=== PATIENT | male | born 1995 | race Caucasian/White ===

== ENCOUNTER 2016-08-01 18:21 | Emergency (ER) | payer OTHER ==
[~2016-08-01] VITALS: Ht 177.8 cm; Wt 62.3 kg
[~2016-08-01 18:21] MED LIST: CIPR-231 PO; GUAI5LIQ PO; IBUP200C PO; METR500T PO
[2016-08-01 19:16] VITALS: BP 133/84; PULSE 93; RESP 16; O2SAT 98
--- NOTE | 2016-08-01 20:08 | DRSVH ---
PROCEDURE: X-RAY RIGHT WRIST COMPLETE, MINIMUM THREE VIEWS ([id number]) INDICATIONS: right wrist pain after fall TECHNIQUE: 4 views of the wrist were acquired. COMPARISON: [facility], CR, XR WRIST 3VW RT, 04/07/2015, 13:24. FINDINGS: Bones: No fractures or dislocations. No suspicious bony lesions. Scaphoid view: No visualized fracture. Soft tissues: No suspicious soft tissue calcifications. IMPRESSION: No visualized acute fracture or dislocation. However, if clinical concern and/or pain pe rsist, short interval imaging followup in 7-10 days is recommended, as occult injury cannot be defini tively excluded. Dictated by: Jennie Leon M.D. on 08/01/2016 at 20:05 Approved by: Jennie Leon M.D. on 08/01/2016 at 20:07
--- NOTE | 2016-08-01 20:09 | DRSVH ---
PROCEDURE: X-RAY SACRUM AND COCCYX, MINIMUM THREE VIEWS ([id number]) INDICATIONS: tailbone pain and fall TECHNIQUE: 3 views of the sacrum and coccyx acquired. COMPARISON: None. FINDINGS: Bones: No fractures or dislocations. No suspicious bony lesions. Soft tissues: Visualized bowel gas pattern is normal. No suspicious soft tissue densities. IMPRESSION: No visualized acute fracture or dislocation. However, if clinical concern and/or pain pe rsist, short interval imaging followup in 7-10 days is recommended, as occult injury cannot be defini tively excluded. Dictated by: Jennie Leon M.D. on 08/01/2016 at 20:07 Approved by: Jennie Leon M.D. on 08/01/2016 at 20:07
--- NOTE | 2016-08-01 21:51 | ED.REPORT ---
HPI-Trauma Minor / Fall Date of Service Aug 01, 2016 ED Provider: Dr. Case 20 year old male with a history of asthma who presents to the ER with sacral pain and R wrist after falling today. Pt works at the [employer] and states that he jumped up to prevent the ball from hitting a child in the head when he landed straight on his R wrist and sacrum. He reports intermittent numbness to the R 4th and 5th fingers. He is able to move wrist without much pain. Pain to sacrum is exacerbated with sitting. Pt denies head trauma and neck pain. PCP Maddison Silva Nursing Notes Stated Complaint: FELL AT WORK- HURT WRIST AND TAILBONE Chief Complaint: Extremity Trauma Nursing Notes Reviewed: Yes Allergies: Coded Allergies: No Known Allergies (Unverified , 08/01/16) Scheduled Ciprofloxacin (Cipro) 500 Mg Tablet 500 MG PO BID Metronidazole (Flagyl) 500 Mg Tablet 500 MG PO Q8H Scheduled PRN Guaifenesin/Codeine Phosphate (Guaifenesin-Codeine Syrup) 5 Ml Syrup 5 ML PO Q4H PRN PRN For Cough Ibuprofen (Ibuprofen) 200 Mg Capsule 1,000 MG PO DAILY PRN PRN For Pain Ibuprofen (Ibuprofen) 600 Mg Tablet 600 MG PO QID PRN PRN For Pain General Time Seen by MD: 21:50 Chief Complaint Fall Hx Obtained From: Patient Arrived By: Walk-in Onset Occurred: Just prior to arrival Symptom Duration: Since onset Caused by: Fall on ground Location: Back (sacrum) Wrist right Quality: Painful Severity: Current: Mild Associated with: Denies: Loss of consciousness, Neck pain Past Medical History Past Medical History Asthma Past Surgical History none reported Family History noncontributory Smoking History Current Some Day Smoker Social History Alcohol Use: Denies alcohol use Drug Use: Denies drug use Ambulatory Status Independent Review of Systems Musculoskeletal: Reports: Back pain (sacrum), Joint pain Neurologic: Denies: Change LOC, Headache Complete sys rev & neg: except as marked. Physical Exam Initial Vital Signs Vital Signs (First) Date Time Temp Pulse Resp B/P Pulse Ox O2 Delivery O2 Flow Rate FiO2 08/01/16 19:16 36.6 93 16 133/84 98 Room Air Initial VS: Reviewed Head / Eyes: Atraumatic, Normocephalic, PERRL ENT: Conjunctiva normal, No scleral icterus Respiratory: No respiratory distress Skin: Warm, Dry, No cyanosis Neurologic: Alert, Oriented, Nonfocal Psychiatric: Mood/affect normal, Behavior normal, Normal thought content General/Constitutional: Awake, Alert Neck: Atraumatic, Full range of motion Back: Full range of motion No bruising or abrasions to area. Tenderness to coccyx. Wrist / Hand: Full range of motion, Neurologic intact (distally), Vascular intact (distally) no bony tenderness Interpretation & Diagnostics X-Ray Interpretation Xray Interpretation: IMPRESSION: No visualized acute fracture or dislocation. However, if clinical concern and/or pain persist, short interval imaging followup in 7-10 days is recommended, as occult injury cannot be definitively excluded. Dictated by: Jennie Leon M.D. on 08/01/2016 at 20:05 X-Ray Ordered: Wrist right Interpretation / Wet Read by: Interpret - Radiologist Xray Interpretation: IMPRESSION: No visualized acute fracture or dislocation. However, if clinical concern and/or pain persist, short interval imaging followup in 7-10 days is recommended, as occult injury cannot be definitively excluded. Dictated by: Jennie Leon M.D. on 08/01/2016 at 20:07 Study Performed: Sacrum and coccyx Interpretation / Wet Read by: Interpret - Radiologist Re-Eval/Medical Decision Re-Evaluation/Progress : Time of Eval: 22:20 Re-Evaluation/Progress Note: Updated of imaging. Discussed plan for discharge and follow up. All questions addressed. Counseled Regarding: Diagnosis, Need for follow-up, When/why to return to ED Discharge & Departure Impression: Primary Impression: Right wrist sprain Encounter type: initial encounter Qualified Code: S63.501A - Unspecified sprain of right wrist, initial encounter Additional Impression: Contusion of sacral region Encounter type: initial encounter Qualified Code: S30.0XXA - Contusion of lower back and pelvis, initial encounter Disposition: Home Discharge Condition All VS Reviewed: Yes Condition: Improved Patient Instructions: Contusions in Adults (ED) Additional Instructions: Emergency Department evaluation included interviewed examination and x-rays of wrist and pelvis. No fractures identified. We advise use of ibuprofen 60 mg every 6 hours as needed for pain. Ice to sore areas. Do not lift more than 20 # or perform repetitive movements with R hand. Follow up with primary care if pain is not resolved in 4-5 days. Referrals: Geeta Silva PA-C (PCP) Scribe Attestation Portions of this note were transcribed by Mariana Keen. I, (Dr. Case) personally performed the history, physical exam and medical decision-making; I reviewed and confirmed the accuracy of the information in the transcribed note. Signed by: Mariana Keen. Marialuisaibe, 08/01/2016, [id number] copies to: Geeta Silva PA-C, Donald L MD Aug 01, 2016 21:51 Mariana Keen Aug 01, 2016 22:18
[2016-08-01] MEDS ORDERED: IBUP-1827 PO (22:24)
[2016-08-01 22:33] VITALS: BP 133/79; PULSE 88; RESP 18; O2SAT 99
== END 2016-08-01 22:35 | disposition home or self-care (01) ==
LOC: SED 20:07
DX: S63.501A Unspecified sprain of right wrist, initial encounter (principal); S30.0XXA Contusion of lower back and pelvis, initial encounter; W18.39XA Other fall on same level, initial encounter; Y93.39 Activity, other involving climbing, rappelling and jumping off; Y92.69 Other specified industrial and construction area as the place of occurrence of the external cause; Y99.0 Civilian activity done for income or pay; R20.0 Anesthesia of skin; J45.909 Unspecified asthma, uncomplicated; F17.200 Nicotine dependence, unspecified, uncomplicated

== ENCOUNTER 2016-09-17 01:08 | Emergency (ER) | payer OTHER ==
[~2016-09-17] VITALS: Ht 175.3 cm; Wt 59.1 kg
[~2016-09-17 01:08] MED LIST changes: +IBUP-1827 PO
[2016-09-17 01:11] VITALS: BP 126/85; PULSE 78; RESP 18; O2SAT 98
[2016-09-17] MEDS ORDERED: Albuterol 2.5 mg/3 mL Inhalation Solution NEB ONE (01:51)
--- NOTE | 2016-09-17 02:16 | ED.REPORT ---
HPI-NVD Date of Service September 17, 2016 ED Provider: Garrick Wheeler MD Patient is a 20 year old male who presents to the ED complaining of vomiting onset a few weeks ago. He reports that a 2 mo ago he started antibiotics and after his treatment he could no longer keep food or water down. He visited his PCP who told him to take probiotics and he has been taking ondansetron. Associated symptoms include abdominal pain and loss of 10 lbs since onset. He denies diarrhea, dysuria, abnormally colored stools, fever, or any other symptoms. Nursing Notes Stated Complaint: VOMITING Chief Complaint: Male Abdominal Pain Nursing Notes Reviewed: Yes Allergies: Coded Allergies: No Known Allergies (Unverified , 08/01/16) Scheduled Ciprofloxacin (Cipro) 500 Mg Tablet 500 MG PO BID Metronidazole (Flagyl) 500 Mg Tablet 500 MG PO Q8H Ondansetron ODT (Ondansetron ODT) 8 Mg Tab.rapdis 8 MG PO TID Scheduled PRN Guaifenesin/Codeine Phosphate (Guaifenesin-Codeine Syrup) 5 Ml Syrup 5 ML PO Q4H PRN PRN For Cough Ibuprofen (Ibuprofen) 200 Mg Capsule 1,000 MG PO DAILY PRN PRN For Pain Ibuprofen (Ibuprofen) 600 Mg Tablet 600 MG PO QID PRN PRN For Pain General Time Seen by MD: 02:07 Chief Complaint Vomiting Hx Obtained From: Patient Arrived By: Walk-in Onset Occurred: More than a week ago... (4 weeks) Symptom Duration: Since onset Recent Healthcare: Recent doctor visit Past Medical History Past Medical History Asthma Migraines Past Surgical History none reported Family History noncontributory Smoking History Former Smoker Social History Alcohol Use: "Social" Drug Use: Denies drug use Ambulatory Status Independent Review of Systems Review of Systems Note: -abnormally colored stools Constitutional: Reports: Recent wt loss, Denies: Fever GI: Reports: Abdominal pain, Nausea, Vomiting, Denies: Diarrhea Complete sys rev & neg: except as marked. Male: Denies Dysuria Physical Exam Initial Vital Signs Vital Signs (First) Date Time Temp Pulse Resp B/P Pulse Ox O2 Delivery O2 Flow Rate FiO2 09/17/16 01:11 36.2 78 18 126/85 98 Room Air Initial VS: Reviewed, Vital signs normal Head / Eyes: Atraumatic, Normocephalic Neck: Full range of motion Respiratory: Breath sounds normal, Clear to auscultation, No respiratory distress Cardiovascular: Regular rate & rhythm, Heart sounds normal Skin: Warm, Dry Neurologic: Alert, Oriented, Nonfocal Psychiatric: Mood/affect normal, Behavior normal, Normal thought content General/Constitutional: Awake, Alert, Well appearing, Well developed Abdomen: Soft Mild L sided tenderness Interpretation & Diagnostics Lab Results Interpretation Result Diagram: 09/17/16 0246 09/17/16 0246 Test 09/17/16 02:46 White Blood Count 9.8th/mm3 (3.8-10.1) Red Blood Count 5.51mil/mm3 (4.40-5.80) Hemoglobin 16.4g/dL (13.8-17.2) Hematocrit 45.5% (41.0-50.0) Mean Corpuscular Volume 82.6fL (81-100) Mean Corpuscular Hemoglobin 29.8pg (27.0-35.0) Mean Corpuscular Hemoglobin Concent 36.0% (32.0-37.0) Red Cell Distribution Width 12.3% (12.3-15.4) Platelet Count 286bil/L (150-400) Neutrophils (%) (Auto) 66.8% (40-74) Lymphocytes (%) (Auto) 25.4% (14-46) Monocytes (%) (Auto) 5.7% (4-12) Eosinophils (%) (Auto) 1.4% (0-5) Basophils (%) (Auto) 0.3% (0-3) Sodium Level 140mEq/L (134-144) Potassium Level 3.7mEq/L (3.5-5.2) Chloride Level 100mEq/L (97-108) Carbon Dioxide Level 25mmol/L (18-29) Blood Urea Nitrogen 19mg/dL (6-20) Creatinine 0.92mg/dL (0.76-1.27) Estimat Glomerular Filtration Rate 110mL/min (>59) Glucose Level 123mg/dL (60-99) Calcium Level 10.2mg/dL (8.5-10.1) Magnesium Level 2.0mg/dL (1.6-2.6) Total Bilirubin 0.4mg/dL (0.0-1.2) Aspartate Amino Transf (AST/SGOT) 28U/L (0-50) Alanine Aminotransferase (ALT/SGPT) 44U/L (0-44) Alkaline Phosphatase 80U/L (25-150) Total Protein 8.0g/dL (6.4-8.4) Albumin 4.7g/dL (3.4-5.0) Lipase 40U/L (13-60) Hold Gómez Top Tube Received (Received) Lab values outside NL range: no clinical significance. Re-Eval/Medical Decision Med Decision/Clinical Course 20-year-old male who has intermittent vomiting for the last week or so. He associates this with a recently completed course of antibiotics. He was hydrated and given IV ondansetron with good relief of his symptoms. There are no significant lab abnormalities at this time. He will be discharged home to continue his probiotics and follow up with his regular doctor as needed for persistent symptoms. Re-Evaluation/Progress : Time of Eval: 05:08 Patient Status: Condition improved Re-Evaluation/Progress Note: Rechecked patient. He took a nap and is feeling better. Discussed plan for discharge. Patient understands and agrees with plan. All questions addressed at this time. Counseled Regarding: Diagnosis, Need for follow-up, When/why to return to ED Discharge & Departure Impression: Primary Impression: Vomiting Vomiting type: unspecified Vomiting Intractability: non-intractable Nausea presence: with nausea Qualified Code: R11.2 - Nausea with vomiting, unspecified Additional Impression: Dehydration Disposition: Home Discharge Condition All VS Reviewed: Yes Condition: Improved Patient Instructions: Dehydration (ED) Additional Instructions: You received IV normal saline and ondansetron here in the emergency room. Continue clear liquids throughout the day today. Ondansetron 4-8 mg dissolved orally 3-4 times daily as needed for nausea and vomiting, prepack dispensed and a prescription written. Referrals: Geeta Silva PA-C (PCP) Scribe Attestation Portions of this note were transcribed by Bebeto Horan. I, Dr. Wheeler personally performed the history, physical exam and medical decision-making; I reviewed and confirmed the accuracy of the information in the transcribed note. Signed by: Bebeto Horan 09/17/16, 0519 copies to: Geeta Silva PA-C, Howard L MD September 17, 2016 02:16 BEBETO HORAN September 17, 2016 02:23
[2016-09-17] MEDS ORDERED: 0.9% Sodium Chloride 1,000 ML IV ONE (02:22)
[2016-09-17] MEDS ORDERED: Ondansetron 2 mg/mL 2 mL Inj IVPUSH PRN (02:25)
[2016-09-17] MEDS ORDERED: Pantoprazole 4 mg/mL 10 mL Inj IVPUSH ONE (02:25)
[2016-09-17 02:51] LABS: BASOPHILS % (AUTO) 0.3 % (0-3); EOSINOPHILS % (AUTO) 1.4 % (0-5); MONOCYTES % (AUTO) 5.7 % (4-12); Mean Corpuscular Hemoglobin 29.8 pg (27.0-35.0); Mean Corpuscular Volume 82.6 fL (81-100); NEUTROPHILS % (AUTO) 66.8 % (40-74); Platelet Count 286 bil/L (150-400)
[2016-09-17] MEDS ORDERED: _Ondansetron ODT 4 mg Tablet PO PRN (05:15)
[2016-09-17] MEDS ORDERED: ONDA8TAB10 PO (05:17)
[2016-09-17 05:35] VITALS: BP 120/75; PULSE 80; RESP 16; O2SAT 98
== END 2016-09-17 05:35 | disposition home or self-care (01) ==
LOC: SED 01:08
DX: R11.2 Nausea with vomiting, unspecified (principal); E86.0 Dehydration; R10.9 Unspecified abdominal pain; R63.4 Abnormal weight loss; J45.909 Unspecified asthma, uncomplicated; Z87.891 Personal history of nicotine dependence
CPT/HCPCS: 36415; 80053; 83690; 83735; 85025; 96361; 96374; 96375; 99285; J2405; J7030; J7613